=== PATIENT | female | born 1945 | race Caucasian/White ===

== ENCOUNTER → 2020-10-20 | Outpatient (CLI) | payer MEDICARE, BC ==
[~2020-10-20] MED LIST: ALBU18HF INH; ALLO300T PO; ASCO100018 PO; ASPI-1026 PO; ASPI-691 PO; ATOR10TA9 PO; AZEL137S4 NAS; BUDE10.2 INH; CHOL10003 PO; COLC0.6T37 PO; DULO30CA2 PO; ENAL20TA9 PO; FAMO-79 PO; FURO20TA3 PO; HYDR-1067 PO; IBUP200C75 PO; INDO50CA15 PO; METO50TA82 PO; MONT10TA6 PO; MULT-758 PO; NAPR-685 PO; OMEP-110 PO; diclofenac 1% gel TP; vitamin b12 PO
[2020-10-20 16:15] LABS: CHLORIDE 106 mmol/L (98-107)
[2020-10-20 16:21] LABS: ALANINE AMINOTRANSFERASE 33 U/L (12-78); ALBUMIN 3.4 g/dL (3.4-5.0); ALKALINE PHOSPHATASE 82 U/L (45-117); ANION GAP 8 mmol/L (5-15); BILIRUBIN,TOTAL 0.3 mg/dL (0.2-1.0); CALCIUM 9.2 mg/dL (8.5-10.1); CREATININE 1.28 mg/dL (0.55-1.02); TOTAL PROTEIN 7.8 g/dL (6.4-8.2)
== END | disposition home or self-care (01) ==
LOC: STAR 14:28
PROVIDERS: ATTEND Otolaryngology
DX: Z01.818 Encounter for other preprocedural examination (principal); K21.9 Gastro-esophageal reflux disease without esophagitis; J32.0 Chronic maxillary sinusitis; Z20.822 Contact with and (suspected) exposure to COVID-19
CPT/HCPCS: 80053; 87635; 93005

== ENCOUNTER 2020-10-26 05:41 | Observation (INO) | payer MEDICARE, BC ==
[~2020-10-26] VITALS: Ht 167.6 cm; Wt 103.1 kg
[2020-10-26] MEDS ORDERED: LIDOCAINE-MPF 1%, 2ML INFIL ONE (06:30)
[2020-10-26] MEDS ORDERED: CHLORHEXIDINE 15 ML UDC MM ONE (06:30)
[2020-10-26] MEDS ORDERED: LACTATED RINGERS 1,000 ML IV SCH (06:30)
[2020-10-26] MEDS ORDERED: EPINEPHRINE TOPICAL SOLN 1 MG/ML, 30ML ONE (07:12)
[2020-10-26] MEDS ORDERED: OXYMETAZOLINE NASAL SPRAY 0.05%,30ML ONE (07:12)
[2020-10-26] MEDS ORDERED: LIDOCAINE/PF 1%, 30ML ONE (07:12)
[2020-10-26] MEDS ORDERED: FLUORESCEIN SODIUM 500 MG/5 ML ONE (07:12)
[2020-10-26] MEDS ORDERED: BACITRACIN OINT 500U/GM, 15 GM ONE (07:12)
[2020-10-26] MEDS ORDERED: EPINEPHRINE 1 MG/ML, 1ML ONE (07:13)
[2020-10-26] MEDS ORDERED: BACITRACIN 50,000 UNIT ONE (07:13)
[2020-10-26] MEDS ORDERED: MIDAZOLAM 1 MG/ML, 2ML ONE (07:18)
[2020-10-26] MEDS ORDERED: FENTANYL PF 250 MCG/5ML ONE (07:18)
[2020-10-26] MEDS ORDERED: METOPROLOL 1 MG/ML, 5ML ONE (07:48)
[2020-10-26] MEDS ORDERED: EPHEDRINE 50 MG/ML, 1ML ONE (07:48)
[2020-10-26] MEDS ORDERED: hydrALAzine 20 MG/ML, 1ML ONE (07:48)
[2020-10-26] MEDS ORDERED: FENTANYL PF 100 MCG/2ML ONE (08:28)
[2020-10-26] MEDS ORDERED: MEPERIDINE/PF 25MG/0.5ML IVPush PRN (08:30)
[2020-10-26] MEDS ORDERED: FENTANYL PF 100 MCG/2ML IV PRN (08:30)
[2020-10-26] MEDS ORDERED: DIAZEPAM 5 MG/ML, 2ML IVPush PRN (08:30)
[2020-10-26] MEDS ORDERED: ALBUTEROL SULFATE 2.5 MG/3 ML NPPB PRN (08:30)
[2020-10-26] MEDS ORDERED: LABETALOL 5MG/ML, 20ML IV PRN (08:30)
[2020-10-26] MEDS ORDERED: OXYcodone 5 MG/5 ML ORAL.SOL UDC PO PRN (08:30)
[2020-10-26] MEDS ORDERED: PROMETHAZINE 25 MG/ML, 1ML IV PRN (08:30)
[2020-10-26] MEDS ORDERED: ACETAMINOPHEN 325 MG TABLET PO PRN (08:30)
[2020-10-26] MEDS ORDERED: hydrALAzine 20 MG/ML, 1ML IV PRN ×2 (08:30→13:00)
[2020-10-26] MEDS ORDERED: HYDROmorphone 2 MG/ML, 1ML IVPush PRN (08:30)
[2020-10-26] MEDS ORDERED: BACITRACIN OINT 500U/GM, 28GM TP ONE (09:31)
[2020-10-26] MEDS ORDERED: PROPOFOL 10 MG/ML, 20ML ONE (09:38)
[2020-10-26] MEDS ORDERED: CEFAZOLIN 1,000 MG ONE (09:38)
[2020-10-26] MEDS ORDERED: GLYCOPYRROLATE 0.2MG/1ML, 5ML ONE (09:38)
[2020-10-26] MEDS ORDERED: DEXAMETHASONE 4 MG/ML, 1ML ONE (09:38)
[2020-10-26] MEDS ORDERED: SUGAMMADEX 200 MG/2 ML IVPush ONE (09:38)
[2020-10-26] MEDS ORDERED: SUCCINYLCHOLINE 20 MG/ML, 10ML ONE (09:38)
[2020-10-26] MEDS ORDERED: ONDANSETRON 2MG/ML, 2ML ONE (09:38)
[2020-10-26] MEDS ORDERED: NEOSTIGMINE 1 MG/ML, 10ML ONE (09:38)
[2020-10-26] MEDS ORDERED: ROCURONIUM 10MG/ML,5ML ONE (09:38)
[2020-10-26] MEDS ORDERED: OXYcodone 5 MG/5 ML ORAL.SOL UDC ONE (10:57)
[2020-10-26] MEDS ORDERED: ACETAMINOPHEN 650 MG/20.3 ML UDC ONE (10:57)
[2020-10-26 12:00] VITALS: BP 162/91
[2020-10-26] MEDS ORDERED: ACETAMINOPHEN 650 MG SUPP PR PRN (13:00)
[2020-10-26] MEDS ORDERED: ONDANSETRON 2MG/ML, 2ML IV PRN (13:00)
[2020-10-26] MEDS ORDERED: AMOX1TAB12 PO (13:15)
[2020-10-26] MEDS ORDERED: SODI104S3 NAS (13:15)
[2020-10-26] MEDS ORDERED: SENN-190 PO (13:15)
[2020-10-26] MEDS ORDERED: OXYM15SP8 NAS (13:15)
[2020-10-26] MEDS ORDERED: OXYC5TAB2 PO (13:15)
[2020-10-26] MEDS ORDERED: ACET325T26 PO (13:15)
[2020-10-26] MEDS: AMOXICILLIN/CLAV 875-125MG TABLET PO SCH (13:20)
[2020-10-26] MEDS ORDERED: ALBUTEROL HFA 90 MCG/SPRAY INH PRN (13:30)
[2020-10-26] MEDS ORDERED: INDOMETHACIN 50 MG CAPSULE PO PRN (13:30)
[2020-10-26] MEDS: OXYcodone 5 MG/5 ML ORAL.SOL UDC PO PRN ×2 (15:09→20:26)
[2020-10-26] MEDS: OXYMETAZOLINE NASAL SPRAY 0.05%, 15ML NAS SCH ×2 (16:00→20:12)
[2020-10-26] MEDS: ACETAMINOPHEN 325 MG TABLET PO PRN ×2 (17:14→21:42)
[2020-10-26 20:48] VITALS: BP 134/68
[2020-10-26] MEDS ORDERED: FAMOTIDINE 20 MG TABLET PO SCH (21:00)
[2020-10-26] MEDS ORDERED: MONTELUKAST 10 MG TABLET PO SCH (21:00)
[2020-10-26] MEDS ORDERED: ATORVASTATIN 10 MG TABLET PO SCH (21:00)
[2020-10-27 00:08] VITALS: BP 136/70
[2020-10-27] MEDS: AMOXICILLIN/CLAV 875-125MG TABLET PO SCH (00:29)
[2020-10-27] MEDS: OXYcodone 5 MG/5 ML ORAL.SOL UDC PO PRN ×2 (00:30→05:22)
[2020-10-27] MEDS: ACETAMINOPHEN 325 MG TABLET PO PRN ×2 (01:41→05:43)
[2020-10-27 04:03] VITALS: BP 144/72
[2020-10-27] MEDS ORDERED: OMEPRAZOLE 20 MG CAPSULE.DR PO SCH (06:00)
[2020-10-27] MEDS: FLUTICASONE/VILANTEROL 100-25MCG/INH INH SCH ×2 (08:00→10:07)
[2020-10-27] MEDS: OXYMETAZOLINE NASAL SPRAY 0.05%, 15ML NAS SCH (08:00)
[2020-10-27 08:39] VITALS: BP 136/75
[2020-10-27] MEDS ORDERED: ALLOPURINOL 300 MG TABLET PO SCH (09:00)
[2020-10-27] MEDS ORDERED: CHOLECALCIFEROL 5,000u TAB PO SCH (09:00)
[2020-10-27] MEDS ORDERED: ASCORBIC ACID 500 MG TABLET PO SCH (09:00)
[2020-10-27] MEDS ORDERED: FUROSEMIDE 20 MG TABLET PO SCH (09:00)
[2020-10-27] MEDS ORDERED: METOPROLOL TARTRATE 50 MG TAB PO SCH (09:00)
[2020-10-27] MEDS ORDERED: ENALAPRIL 20MG TABLET PO SCH (09:00)
[2020-10-28] MEDS ORDERED: CYANOCOBALAMIN 1,000 MCG TABLET PO SCH (09:00)
== END 2020-10-27 12:11 | disposition home or self-care (01) ==
LOC: OUT 05:41 → 4NE 11:54 → OUT 22:23 → 4NE 22:24 → DCLOUNGE 10-27 11:58
PROVIDERS: ADMIT Otolaryngology; ATTEND Otolaryngology
DX: J32.9 Chronic sinusitis, unspecified (principal); K21.9 Gastro-esophageal reflux disease without esophagitis; J44.9 Chronic obstructive pulmonary disease, unspecified; R51.9 Headache, unspecified; I10 Essential (primary) hypertension; E78.5 Hyperlipidemia, unspecified; E66.9 Obesity, unspecified; Z79.899 Other long term (current) drug therapy
CPT/HCPCS: 31254; 31257; 31276; 61782; 70486; 82962; 87015; 87070; 87075; 87076; 87077; 87102; 87116; 87186; 87205; 87206; 88304; 94640; 96374; C9122; G0378; J0171; J0360; J0690; J1100; J2250; J2405; J2704; J3010; J3490; J7120; J2710; J0330